=== PATIENT | male | born 1980 | race Caucasian/White ===

== ENCOUNTER → 2024-04-28 11:32 | Outpatient (CLI) | payer OTHER, SELFPAY ==
--- NOTE | 2024-04-28 11:38 | DI.RAD.S_ITS ---
PROCEDURE: XR KNEE RT 3V INDICATIONS: Other specified arthritis, unspecified site TECHNIQUE: 3 views of the knee were acquired. COMPARISON: None. FINDINGS: Bones: No acute fractures or dislocations. No suspicious bony lesions. Soft tissues: No joint effusion. No suspicious soft tissue calcifications. IMPRESSION: No acute osseous abnormality. If symptoms persist or if there is continued clinical concern, cross-sectional imaging such as MRI may be helpful for further evaluation. Approved by: Dre Cardoza M.D. on 04/28/2024 at 13:58
== END ==
LOC: RAD 11:37
PROVIDERS: Referring Provider Chiropractor; Visit Provider Chiropractor
DX: M13.80 Other specified arthritis, unspecified site (principal)
CPT/HCPCS: 73562